=== PATIENT | female | born 1965 | race Caucasian/White ===

== ENCOUNTER 2021-07-14 17:25 | Emergency (ER) | payer OTHER ==
[~2021-07-14] VITALS: Ht 160 cm; Wt 72.6 kg
[~2021-07-14 17:25] MED LIST: CARAFATE1 GM PO; INTESTINEX680 M1 PO; LEVSIN0.125 MG PO; PEPCID20 MG PO; PROTONIX20 MG PO
[2021-07-14] MEDS ORDERED: SYNTHROID150 MCG (17:46)
[2021-07-14] MEDS ORDERED: WELLBUTRIN XL300 MG (17:47)
[2021-07-14] MEDS ORDERED: LYRICA150 MG (17:47)
== END 2021-07-15 01:02 | disposition home or self-care (01) ==
LOC: ER 17:25
DX: R10.32 Left lower quadrant pain (principal); R11.2 Nausea with vomiting, unspecified